=== PATIENT | female | born 1940 | race Caucasian/White ===

== ENCOUNTER → 2016-10-06 | Outpatient (CLI) | payer MEDICARE ==
--- NOTE | 2016-10-06 11:55 | MM ---
Reason for exam: follow-up at short interval from prior study. Last mammogram was performed 9 months ago. History: Patient is postmenopausal and has history of breast cancer at age 74. Mastectomy of the left breast, 2015. Stereotactic core biopsy of the right breast, April 14, 2002. Excisional biopsy of the right breast. Took estrogen for 24 years beginning at age 36. Physical Findings: Nurse did not find any significant physical abnormalities on exam. MG 3D Diag Mammo W/Cad RT CC and MLO view(s) were taken of the right breast. Prior study comparison: December 26, 2015, right breast MG 3d diag mammo w/cad RT. December 22, 2014, bilateral MG work up mamm w CAD BILAT. There are scattered fibroglandular densities. There is chronic nodularity in the right breast. No significant new findings when compared with previous films. These results were verbally communicated with the patient and result sheet given to the patient on 10/06/16. ASSESSMENT: Benign, BI-RAD 2 RECOMMENDATION: Follow-up diagnostic mammogram of the right breast in 6 months.
--- NOTE | 2016-10-06 11:57 | USB ---
Reason for exam: follow-up at short interval from prior study. History: Patient is postmenopausal and has history of breast cancer at age 74. Mastectomy of the left breast, 2015. Stereotactic core biopsy of the right breast, April 14, 2002. Excisional biopsy of the right breast. Took estrogen for 24 years beginning at age 36. US Breast RT Right breast ultrasound including all four quadrants, the retroareolar region and axilla demonstrates a 0.5 x 0.3 x 0.4cm oval, cystic lesion at 10 o'clock and a 0.5 x 0.2 x 0.4cm oval, cystic lesion at 9 o'clock. These results were verbally communicated with the patient and result sheet given to the patient on 10/06/16. ASSESSMENT: Benign, BI-RAD 2 RECOMMENDATION: Follow-up diagnostic mammogram of the right breast in 6 months.
== END | disposition home or self-care (01) ==
LOC: RADMAMWWP 07:16
PROVIDERS: ATTEND Family Medicine
DX: Z08 Encounter for follow-up examination after completed treatment for malignant neoplasm (principal); Z85.3 Personal history of malignant neoplasm of breast
CPT/HCPCS: 76641; G0206; G0279

== ENCOUNTER → 2017-04-07 | Outpatient (CLI) | payer MEDICARE ==
--- NOTE | 2017-04-08 08:09 | MM ---
Reason for exam: follow-up at short interval from prior study. Last mammogram was performed 6 months ago. History: Patient is postmenopausal and has history of breast cancer at age 74. Mastectomy of the left breast, 2015. Stereotactic core biopsy of the right breast, April 14, 2002. Excisional biopsy of the right breast. Took estrogen for 24 years beginning at age 36. Physical Findings: Nurse did not find any significant physical abnormalities on exam. MG 3D Diag Mammo W/Cad RT CC and MLO view(s) were taken of the right breast. Prior study comparison: October 06, 2016, right breast MG 3d diag mammo w/cad RT. December 26, 2015, right breast MG 3d diag mammo w/cad RT. There are scattered fibroglandular densities. Finding: There is a 6.9mm high density mass located 8.5cm from the nipple in the 3-4 o'clock position of the right breast. New finding since October 06, 2016 and December 26, 2015. These results were verbally communicated with the patient and result sheet given to the patient on 04/07/17. ASSESSMENT: Incomplete: need additional imaging evaluation, BI-RAD 0 RECOMMENDATION: Ultrasound of the right breast. (Lower inner quadrant).
--- NOTE | 2017-04-08 08:12 | USB ---
Reason for exam: additional evaluation requested from abnormal screening. History: Patient is postmenopausal and has history of breast cancer at age 74. Mastectomy of the left breast, 2015. Stereotactic core biopsy of the right breast, April 14, 2002. Excisional biopsy of the right breast. Took estrogen for 24 years beginning at age 36. US Breast Limited RT Right breast ultrasound demonstrates no cystic or solid lesion seen. These results were verbally communicated with the patient and result sheet given to the patient on 04/07/17. ASSESSMENT: Negative, BI-RAD 1 RECOMMENDATION: Follow-up diagnostic mammogram of the right breast in 6 months.
== END | disposition home or self-care (01) ==
LOC: RADMAMWWP 13:28
PROVIDERS: ATTEND Family Medicine
DX: R92.8 Other abnormal and inconclusive findings on diagnostic imaging of breast (principal); Z85.3 Personal history of malignant neoplasm of breast
CPT/HCPCS: 76642; G0206; G0279

== ENCOUNTER → 2017-10-08 | Outpatient (CLI) | payer MEDICARE ==
--- NOTE | 2017-10-08 10:31 | MM ---
Reason for exam: follow-up at short interval from prior study. Last mammogram was performed 6 months ago. History: Patient is postmenopausal and has history of breast cancer at age 74. Mastectomy of the left breast, 2015. Stereotactic core biopsy of the right breast, April 14, 2002. Excisional biopsy of the right breast. Took estrogen for 24 years beginning at age 36. Physical Findings: Nurse did not find any significant physical abnormalities on exam. MG 3D Diag Mammo W/Cad RT CC, MLO, and ML view(s) were taken of the right breast. Prior study comparison: April 07, 2017, right breast MG 3d diag mammo w/cad RT. October 06, 2016, right breast MG 3d diag mammo w/cad RT. The breast tissue is heterogeneously dense. This may lower the sensitivity of mammography. Finding: There are typically benign vascular, dystrophic, round calcifications in the right breast. There is a chronic nodularity in the right breast. There is no discrete abnormality. These results were verbally communicated with the patient and result sheet given to the patient on 10/08/17. ASSESSMENT: Benign, BI-RAD 2 RECOMMENDATION: Follow-up diagnostic mammogram of the right breast in 1 year.
== END | disposition home or self-care (01) ==
LOC: RADMAMWWP 09:31
PROVIDERS: ATTEND Family Medicine
DX: Z09 Encounter for follow-up examination after completed treatment for conditions other than malignant neoplasm (principal); Z85.3 Personal history of malignant neoplasm of breast
CPT/HCPCS: 77065; G0279

== ENCOUNTER → 2018-01-20 | Outpatient (CLI) | payer MEDICARE ==
--- NOTE | 2018-01-20 13:16 | BD ---
EXAMINATION TYPE: Axial Bone Density DATE OF EXAM: 01/20/2018 COMPARISON: 12/26/2015 CLINICAL HISTORY: Osteoporosis screening. Postmenopausal female. Height: 66.5 IN Weight: 195 LBS FRAX RISK QUESTIONS: Secondary Osteoporosis: 3. Menopause before 45: YES AGE 34 RISK FACTORS HISTORY OF: Family History of Osteoporosis: SON/ DAUGHTER Active: MODERATE Postmenopausal woman: AGE 34 MEDICATIONS: Thyroid Medications: YES Which medication: Synthroid How Lon + YEARS Additional Medications: VIT D, SYNTHROID, BLOOD PRESSURE MEDS, CHOLESTEROL MEDS Additional History: BREAST CANCER EXAM MEASUREMENTS: Bone mineral densitometry was performed using the [employer] System. Bone mineral density as measured about the Lumbar spine is: ----- L1-L4(G/cm2): 1.191 T Score Values are as follows: ----- L2: -0.6 ----- L3: 0.5 ----- L4: 1.0 ----- L1-L4: 0.1 Bone mineral density has: Increased 2.5% since study of: 12/26/2015 Bone mineral density about the R hip (g/cm2): 0.972 Bone mineral density about the L hip (g/cm2): 0.910 T Score values are as follows: -----R Neck: -0.5 -----L Neck: -0.9 -----R Total: -0.1 -----L Total: -0.2 Bone mineral density has: Decreased -3.0% since study of: 12/26/2015 IMPRESSION: Normal (Values between +1 and -1 indicate normal bone mass). Values approach osteopenia and requires of the left femur. Consider repeating this study in 5 years or sooner if there is some new clinical i ndication. NOTE: T-SCORE=SD OF THE YOUNG ADULT MEAN.
== END | disposition home or self-care (01) ==
LOC: RADBDWWP 07:53
PROVIDERS: ATTEND Family Medicine
DX: M85.852 Other specified disorders of bone density and structure, left thigh (principal); Z78.0 Asymptomatic menopausal state
CPT/HCPCS: 77080

== ENCOUNTER → 2018-11-30 | Outpatient (CLI) | payer MEDICARE ==
--- NOTE | 2018-11-30 13:11 | ECHOF ---
Referral Reason:R06.02 SOB MEASUREMENTS -------- HEIGHT: 170.2 cm WEIGHT: 86.2 kg BP: 139/66 RVIDd: 3.0 cm (< 3.3) IVSd: 1.1 cm (0.6 - 1.1) LVIDd: 3.7 cm (3.9 - 5.3) LVPWd: 1.1 cm (0.6 - 1.1) IVSs: 1.6 cm LVIDs: 2.4 cm LVPWs: 1.5 cm LA Diam: 2.9 cm (2.7 - 3.8) LAESV Index (A-L): 11.16 ml/m Ao Diam: 3.1 cm (2.0 - 3.7) AV Cusp: 2.0 cm (1.5 - 2.6) MV EXCURSION: 13.536 mm (> 18.000) MV EF SLOPE: 47 mm/s (70 - 150) EPSS: 0.7 cm MV E Mohsen: 0.63 m/s MV DecT: 293 ms MV A Mohsen: 0.94 m/s MV E/A Ratio: 0.67 RAP: 5.00 mmHg RVSP: 25.63 mmHg FINDINGS -------- Sinus rhythm. This was a technically adequate study. The left ventricular size is normal. There is borderline concentric left ventricular hypertrophy. Overall left ventricular systolic function is normal with, an EF between 60 - 65 %. The right ventricle is normal in size. Normal LA size by volume 22+/-6 ml/m2. The right atrium is normal in size. There is mild aortic valve sclerosis. The mitral valve leaflets are mildly thickened. Mild mitral annular calcification present. Mild tricuspid regurgitation present. Right ventricular systolic pressure is normal at < 35 mmHg. Trace/mild (physiologic) pulmonic regurgitation. The aortic root size is normal. Normal inferior vena cava with normal inspiratory collapse consistent with estimated right atrial pre ssure of 5 mmHg. There is no pericardial effusion. CONCLUSIONS -------- 1. Sinus rhythm. 2. This was a technically adequate study. 3. The left ventricular size is normal. 4. There is borderline concentric left ventricular hypertrophy. 5. Overall left ventricular systolic function is normal with, an EF between 60 - 65 %. 6. The right ventricle is normal in size. 7. Normal LA size by volume 22+/-6 ml/m2. 8. The right atrium is normal in size. 9. There is mild aortic valve sclerosis. 10. The mitral valve leaflets are mildly thickened. 11. Mild mitral annular calcification present. 12. Mild tricuspid regurgitation present. 13. Right ventricular systolic pressure is normal at < 35 mmHg. 14. Trace/mild (physiologic) pulmonic regurgitation. 15. The aortic root size is normal. 16. Normal inferior vena cava with normal inspiratory collapse consistent with estimated right atrial pressure of 5 mmHg. 17. There is no pericardial effusion. STUDENT SERVICES ADVISOR: Evelin Hugo RDCS
--- NOTE | 2018-11-30 13:14 | XR ---
EXAMINATION TYPE: XR lumbar spine 2 or 3V DATE OF EXAM: 11/30/2018 COMPARISON: NONE HISTORY: 78-year-old female low back pain and sciatica for 2 months TECHNIQUE: 3 views FINDINGS: 5 lumbar type vertebral bodies. Facet arthropathy mid to lower lumbar spine. Grade 1 anterolisthesis at L4-L5. Mild endplate spondylosis throughout. Vertebral body heights are preserved. Atherosclerotic calcifications throughout the abdominal aorta. 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 At le ast mild multilevel degenerative disc disease. No vertebral compression collapse.
--- NOTE | 2018-11-30 13:16 | MM ---
Reason for exam: additional evaluation requested from prior study. Last mammogram was performed 1 year and 2 months ago. History: Patient is postmenopausal and has history of breast cancer at age 74. Mastectomy of the left breast, 2015. Stereotactic core biopsy of the right breast, April 14, 2002. Excisional biopsy of the right breast. Took estrogen for 24 years beginning at age 36. Physical Findings: Nurse did not find any significant physical abnormalities on exam. MG 3D Diag Mammo W/Cad RT CC and MLO view(s) were taken of the right breast. Prior study comparison: October 08, 2017, right breast MG 3d diag mammo w/cad RT. April 07, 2017, right breast MG 3d diag mammo w/cad RT. The breast tissue is heterogeneously dense. This may lower the sensitivity of mammography. Stable benign calcifications. There is chronic nodularity in the right breast. No significant new findings when compared with previous films. These results were verbally communicated with the patient and result sheet given to the patient on 11/30/18. ASSESSMENT: Benign, BI-RAD 2 RECOMMENDATION: Follow-up diagnostic mammogram of the right breast in 1 year.
== END | disposition home or self-care (01) ==
LOC: RADECHMAIN 10:41
PROVIDERS: ATTEND Family Medicine
DX: Z08 Encounter for follow-up examination after completed treatment for malignant neoplasm (principal); M51.16 Intervertebral disc disorders with radiculopathy, lumbar region; M46.86 Other specified inflammatory spondylopathies, lumbar region; M43.16 Spondylolisthesis, lumbar region; I07.1 Rheumatic tricuspid insufficiency; I35.8 Other nonrheumatic aortic valve disorders; I05.8 Other rheumatic mitral valve diseases; I37.1 Nonrheumatic pulmonary valve insufficiency; Z85.3 Personal history of malignant neoplasm of breast
CPT/HCPCS: 93306; 72100; 77065; G0279; 77061

== ENCOUNTER → 2020-03-14 | Outpatient (CLI) | payer MEDICARE ==
--- NOTE | 2020-03-20 11:22 | MM ---
Reason for exam: additional evaluation requested from prior study. Last mammogram was performed 1 year and 3 months ago. History: Patient is postmenopausal and has history of breast cancer at age 74. Mastectomy of the left breast, 2015. Stereotactic core biopsy of the right breast, April 14, 2002. Excisional biopsy of the right breast. Took estrogen for 24 years beginning at age 36. Physical Findings: Nurse did not find any significant physical abnormalities on exam. MG 3D Diag Mammo W/Cad RT CC and MLO view(s) were taken of the right breast. Prior study comparison: November 30, 2018, right breast MG 3d diag mammo w/cad RT. October 08, 2017, right breast MG 3d diag mammo w/cad RT. There is chronic nodularity in the right breast. No significant new findings when compared with previous films. These results were verbally communicated with the patient and result sheet given to the patient on 03/14/20. ASSESSMENT: Benign, BI-RAD 2 RECOMMENDATION: Routine screening mammogram of the right breast in 1 year.
== END | disposition home or self-care (01) ==
LOC: RADMAMWWP 09:47
PROVIDERS: ATTEND Family Medicine
DX: Z08 Encounter for follow-up examination after completed treatment for malignant neoplasm (principal); Z85.3 Personal history of malignant neoplasm of breast
CPT/HCPCS: 77065; G0279; 77061

== ENCOUNTER → 2021-06-04 | Outpatient (CLI) | payer MEDICARE ==
[2021-06-04 14:49] LABS: Basophils # (A) 0.02 X 10*3/uL (0.00-0.10); Basophils % (A) 0.3 %; Eosinophils # (A) 0.09 X 10*3/uL (0.04-0.35); Eosinophils % (A) 1.4 %; HCT 45.4 % (37.2-46.3); HGB 14.3 g/dL (12.0-15.0); Lymphocytes # (A) 1.71 X 10*3/uL (0.90-5.00); Lymphocytes % (A) 25.8 %; MCH 31.2 pg (27.0-32.0); MCHC 31.5 g/dL (32.0-37.0); MCV 98.9 fL (80.0-97.0); Mean Platelet Volume 11.4 fL (9.5-12.2); Monocytes # (A) 0.61 X 10*3/uL (0.20-1.00); Monocytes % (A) 9.2 %; Neutrophils # (A) 4.18 X 10*3/uL (1.80-7.70); Platelet Count 216 X 10*3/uL (140-440); RBC 4.59 X 10*6/uL (4.10-5.20); RDW 12.9 % (11.5-14.5); WBC 6.63 X 10*3/uL (4.50-10.00)
[2021-06-04 16:11] LABS: African American GFR (CKD) 61.6 (60.0-200.0); Albumin 4.6 g/dL (3.8-4.9); Albumin/Globulin Ratio 1.92 (1.60-3.17); Anion Gap 12.4 mmol/L (4.00-12.00); BUN/Creat Ratio 15.4 Ratio (12.00-20.00); Blood Urea Nitrogen 15.4 mg/dL (9.0-27.0); Calcium 9.9 mg/dL (8.7-10.3); Carbon Dioxide 27.6 mmol/L (21.6-31.8); Chol/HDL Ratio 3.57 Ratio; Globulin 2.4 g/dL (1.6-3.3); HDL Cholesterol 51.3 mg/dL (40.00-60.00); LDL Cholesterol,Calculated 90.5 mg/dL (0.0-131.0); Non-African American GFR(CKD) 53.2 (60.0-200.0); Potassium 4.2 mmol/L (3.5-5.5); Total Bilirubin 0.4 mg/dL (0.30-1.20); Uric Acid 5.2 mg/dL (2.9-7.7); VLDL Calculation 41.2 mg/dL (5.00-40.00)
== END | disposition home or self-care (01) ==
LOC: LABWHC1 09:20
PROVIDERS: ATTEND Family Medicine
DX: I12.9 Hypertensive chronic kidney disease with stage 1 through stage 4 chronic kidney disease, or unspecified chronic kidney disease (principal); J44.9 Chronic obstructive pulmonary disease, unspecified; E78.5 Hyperlipidemia, unspecified; N18.31 Chronic kidney disease, stage 3a; R73.03 Prediabetes; M54.50 Low back pain, unspecified
CPT/HCPCS: 36415; 80053; 80061; 82306; 82550; 83036; 84207; 84443; 84550; 85025

== ENCOUNTER → 2021-09-19 | Outpatient (CLI) | payer MEDICARE ==
--- NOTE | 2021-09-19 12:00 | MM ---
Reason for exam: additional evaluation requested from prior study. Last mammogram was performed 1 year and 6 months ago. History: Patient is postmenopausal and has history of breast cancer at age 74. Mastectomy of the left breast, 2015. Stereotactic core biopsy of the right breast, April 14, 2002. Excisional biopsy of the right breast. Took estrogen for 24 years beginning at age 36. Physical Findings: Nurse did not find any significant physical abnormalities on exam. MG 3D Diag Mammo W/Cad RT CC and MLO view(s) were taken of the right breast. Prior study comparison: March 14, 2020, right breast MG 3d diag mammo w/cad RT. November 30, 2018, right breast MG 3d diag mammo w/cad RT. There are scattered fibroglandular densities. There is chronic nodularity in the right breast. Benign vascular calcifications. No significant new findings when compared with previous films. These results were verbally communicated with the patient and result sheet given to the patient on 09/19/21. ASSESSMENT: Benign, BI-RAD 2 RECOMMENDATION: Follow-up diagnostic mammogram of the right breast in 1 year.
--- NOTE | 2021-09-19 17:12 | BD ---
EXAMINATION TYPE: Axial Bone Density DATE OF EXAM: 09/19/2021 COMPARISON: 01.20.2018 CLINICAL HISTORY: 81 YR OLD FEMALE....ICD-10 CODE: Z78.0 MENOPAUSE, M81.0 OSTEOPOROSIS Height: 66 Weight: 195 FRAX RISK QUESTIONS: Secondary Osteoporosis: YES 3. Menopause before 45: YES RISK FACTORS HISTORY OF: Postmenopausal woman: YES, 35 PARTIAL, DANN AT 43, HRT FOR 10 YRS Frequent falls: UNSTEADY, USING [employer] Hyperparathyroidism: NO Adrenal Insufficiency: NO MEDICATIONS: Thyroid Medications: YES, SYNTHROID, FOR 10 YRS Additional Medications: BP MEDS, VIT D AND CALCIUM Additional History: HYPERTENSION, THYROID, OSTEOARTHRITIS, HX OF LT BREAST CANCER, MASTECTOMY, ANTI-H ORMONE TREATMENT ONLY EXAM MEASUREMENTS: Bone mineral densitometry was performed using the [employer] System. Bone mineral density as measured about the Lumbar spine is: ----- L1-L4(G/cm2): 1.152 T Score Values are as follows: ----- L1: -0.6 ----- L2: -0.4 ----- L3: 0.3 ----- L4: -0.4 ----- L1-L4: -0.2 Bone mineral density has: Decreased -5.7% SINCE : 01.20.2018 Bone mineral density about the R hip (g/cm2): 0.968 Bone mineral density about the L hip (g/cm2): 0.987 T Score values are as follows: -----R Neck: -0.6 -----L Neck: -0.8 -----R Total: -0.3 -----L Total: -0.2 Bone mineral density has: Decreased -1.0% SINCE: 01.20.2018 FRAX%S: THERE IS A 10.4% CHANCE FOR A MAJOR OSTEOPOROTIC FX AND A 1.9% FOR HER HIPS......PROBABIL ITY FOR FX IN 10 YRS TIME IMPRESSION: Normal (Values between +1 and -1 indicate normal bone mass). Consider repeating this study in 5 year s or sooner if there is some new clinical indication. NOTE: T-SCORE=SD OF THE YOUNG ADULT MEAN.
== END | disposition home or self-care (01) ==
LOC: RADMAMWWP 10:28
PROVIDERS: ATTEND Family Medicine
DX: R92.8 Other abnormal and inconclusive findings on diagnostic imaging of breast (principal); Z78.0 Asymptomatic menopausal state; Z85.3 Personal history of malignant neoplasm of breast
CPT/HCPCS: 77080; 77065; G0279; 77061

== ENCOUNTER 2023-03-31 20:10 | Observation (INO) | payer MEDICARE ==
[2023-03-31 20:54] LABS: Basophils % (A) 0 %; Eosinophils # (A) 0.1 k/uL (0-0.7); Eosinophils % (A) 1 %; HCT 41.2 % (34.0-46.0); HGB 13.8 gm/dL (11.4-16.0); Lymphocytes # (A) 2.1 k/uL (1.0-4.8); Lymphocytes % (A) 27 %; MCH 32.4 pg (25.0-35.0); MCHC 33.5 g/dL (31.0-37.0); MCV 96.6 fL (80.0-100.0); Mean Platelet Volume 8.6; Monocytes # (A) 0.7 k/uL (0-1.0); Monocytes % (A) 9 %; Neutrophils # (A) 4.6 k/uL (1.3-7.7); Neutrophils % (A) 59 %; Platelet Count 198 k/uL (150-450); RBC 4.26 m/uL (3.80-5.40); RDW 12.5 % (11.5-15.5); WBC 7.7 k/uL (3.8-10.6)
[2023-03-31 20:58] LABS: ALT 22 U/L (4-34); AST 31 U/L (14-36); African American GFR (CKD) 60 (>60 ml/min/1.73 sqM); Albumin 3.9 g/dL (3.5-5.0); Alkaline Phosphatase 103 U/L (38-126); Anion Gap 8 mmol/L; Blood Urea Nitrogen 21 mg/dL (7-17); Carbon Dioxide 27 mmol/L (22-30); Chloride 105 mmol/L (98-107); Glucose 125 mg/dL (74-99); Lipase 207 U/L (23-300); Magnesium 2.2 mg/dL (1.6-2.3); Non-African American GFR(CKD) 52 (>60 ml/min/1.73 sqM); Potassium 3.4 mmol/L (3.5-5.1); Sodium 140 mmol/L (137-145); Total Bilirubin 0.4 mg/dL (0.2-1.3); Total Protein 6.8 g/dL (6.3-8.2)
[2023-03-31 21:07] LABS: NT-Pro-B-Type Natriuretic Pept 273 pg/mL
--- NOTE | 2023-03-31 21:09 | ED ---
Chest Pain HPI - General Chief Complaint: Chest Pain Stated Complaint: Chest Pain Time Seen by Provider: 03/31/23 20:42 Source: patient Mode of arrival: EMS Limitations: no limitations - History of Present Illness Initial Comments: 82-year-old female with past medical history of breast cancer in remission, hypertension, hyperlipidemia who presents to the emergency room reporting left- sided chest pain. States the pain has been going on for the past 2 days. Is located over the left chest wall and is described as a pressure sensation which radiates to her back and into her left arm. She does have some left arm numbness. Pain was significant, 10 out of 10 when she called EMS. They provided her with 324 mg of chewable aspirin and 3 nitros. Arrives and states that her pain is mostly improved. She grades her pain is 2 out of 10. Denies history of coronary disease. No associated fevers, chills or cough. No calf pain or swelling. No history of DVT or PE. Denies any provocative factors. No numbness or tingling in her lower extremities. No other alleviating, precipitating or modifying factors - Related Data Home Medications Medication Instructions Recorded Confirmed Omeprazole [PriLOSEC] 20 mg PO DAILY 10/15/14 03/31/23 Pravastatin Sodium [Pravachol] 40 mg PO HS 10/15/14 03/31/23 Losartan Potassium 100 mg PO DAILY 01/11/15 03/31/23 hydroCHLOROthiazide 12.5 mg PO DAILY 01/11/15 03/31/23 [Hydrochlorothiazide] Levothyroxine Sodium [Synthroid] 75 mcg PO DAILY 03/31/23 03/31/23 Vit C/E/Zn/Coppr/Lutein/Zeaxan 1 cap PO BID 03/31/23 03/31/23 [Preservision Areds 2 Softgel] diphenhydrAMINE [Benadryl] 25 mg PO DAILY PRN 03/31/23 03/31/23 Allergies Allergy/AdvReac Type Severity Reaction Status Date / Time codeine AdvReac Confusion Verified 03/31/23 22:28 morphine AdvReac Confusion Verified 03/31/23 22:28 Review of Systems ROS Statement: Those systems with pertinent positive or pertinent negative responses have been documented in the HPI. ROS Other: All systems not noted in ROS Statement are negative. Past Medical History Past Medical History: Cancer, GERD/Reflux, Hyperlipidemia, Hypertension, Thyroid Disorder Additional Past Medical History / Comment(s): LEFT BREAST CANCER. History of Any Multi-Drug Resistant Organisms: None Reported Past Surgical History: Heart Catheterization Additional Past Surgical History / Comment(s): PARTIAL THYROIDECTOMY - 2000, cataract, lens implants. HEART CATH IN OCTOBER 2014- NEGATIVE Past Anesthesia/Blood Transfusion Reactions: No Reported Reaction Past Psychological History: Anxiety Past Alcohol Use History: None Reported Past Drug Use History: None Reported - Past Family History Father Brother(s) Family Medical History: Cancer Father Family Medical History: Cancer Mother Family Medical History: Myocardial Infarction ([place]) General Exam Limitations: no limitations General appearance: alert, in no apparent distress Head exam: Present: atraumatic, normocephalic, normal inspection Eye exam: Present: normal appearance, PERRL, EOMI. Absent: scleral icterus, conjunctival injection, periorbital swelling ENT exam: Present: normal exam, mucous membranes moist Neck exam: Present: normal inspection. Absent: tenderness, meningismus, lymphadenopathy Respiratory exam: Present: normal lung sounds bilaterally. Absent: respiratory distress, wheezes, rales, rhonchi, stridor Cardiovascular Exam: Present: regular rate, normal rhythm, normal heart sounds. Absent: systolic murmur, diastolic murmur, rubs, gallop, clicks GI/Abdominal exam: Present: soft, normal bowel sounds. Absent: distended, tenderness, guarding, rebound, rigid Extremities exam: Present: normal inspection, full ROM, normal capillary refill. Absent: tenderness, pedal edema, joint swelling, calf tenderness Back exam: Present: normal inspection Neurological exam: Present: alert, oriented X3, CN II-XII intact Psychiatric exam: Present: normal affect, normal mood Skin exam: Present: warm, dry, intact, normal color. Absent: rash Course Vital Signs 03/31/23 20:13 Temperature 97.9 F Pulse Rate 92 Respiratory 20 Rate Blood Pressure 137/95 O2 Sat by Pulse 94 L Oximetry Chest Pain MDM - MDM Was pt. sent in by a medical professional or institution (, PA, FIREBOAT OPERATOR, urgent care, hospital, or shelter...) When possible be specific @ -No Did you speak to anyone other than the patient for history (EMS, parent, family, police, friend...)? What history was obtained from this source @ -Spoke with EMS about the patient's history Did you review nursing and triage notes (agree or disagree)? Why? @ -I reviewed and agree with nursing and triage notes Were old charts reviewed (outside hosp., previous admission, EMS record, old EKG, old radiological studies, urgent care reports/EKG's, shelter records)? Report findings @ -No old charts were reviewed Differential Diagnosis (chest pain, altered mental status, abdominal pain women, abdominal pain men, vaginal bleeding, weakness, fever, dyspnea, syncope, headache, dizziness, GI bleed, back pain, seizure, CVA, palpatations, mental health, musculoskeletal)? @ -Differential Chest Pain: Stable Angina, Unstable Angina, STEMI, NSTEMI Aortic Dissection, Pneumothorax, M usculoskeletal, Esophageal Spasm GERD, Cholecystitis, Pancreatitis, Zoster, this is not meant to be an all-inclusive list. EKG interpreted by me (3pts min.). @ -Yes and demonstrates sinus rhythm with a rate of 93. OH interval 131. QRS 94. QTC of 408. Some PVCs. No acute ST segment elevation X-rays interpreted by me (1pt min.). @ -Yes and demonstrates no acute intrathoracic process CT interpreted by me (1pt min.). @ -None done U/S interpreted by me (1pt. min.). @ -None done What testing was considered but not performed or refused? (CT, X-rays, U/S, labs)? Why? @ -None What meds were considered but not given or refused? Why? @ -None Did you discuss the management of the patient with other professionals (professionals i.e. , PA, FIREBOAT OPERATOR, lab, RT, psych nurse, manager social responsibility, pantry worker, teacher, patient safety officer, manager of case management)? Give summary @ -With Armida from [facility] who agreed to admit the patient Was smoking cessation discussed for >3mins.? @ -No Was critical care preformed (if so, how long)? @ -No Were there social determinants of health that impacted care today? How? (Homelessness, low income, unemployed, alcoholism, drug addiction, transportation, low edu. Level, literacy, decrease access to med. care, custodial, rehab)? @ -No Was there de-escalation of care discussed even if they declined (Discuss DNR or withdrawal of care, Hospice)? DNR status @ -No What co-morbidities impacted this encounter? (DM, HTN, Smoking, COPD, CAD, Cancer, CVA, ARF, Chemo, Hep., AIDS, mental health diagnosis, sleep apnea, morbid obesity)? @ -None Was patient admitted / discharged? Hospital course, mention meds given and route, prescriptions, significant lab abnormalities, going to OR and other pertinent info. @ -Upon arrival patient was placed in room 1. A thorough history and physical exam was performed. Patient is hooked to continuous pulse ox and cardiac monitoring. 12-lead EKG is obtained which demonstrates no signs of ischemia or infarction. IV is established laboratory studies are conducted. Patient has already received 3 nitro and 4 chewable aspirin. Laboratory studies are reviewed. Patient does go for chest x-ray. Results are discussed the patient. Recommended admission due to chest pain responsive to nitro with multiple risk factors for coronary disease. Patient was agreeable to admission. Called and spoke with Armida who agreed to admit the patient. She is awaiting a bed on the floor in stable condition Undiagnosed new problem with uncertain prognosis? @ -Yes Drug Therapy requiring intensive monitoring for toxicity (Heparin, Nitro, Insulin, Cardizem)? @ -No Were any procedures done? @ -No Diagnosis/symptom? @ -Acute chest pain Acute, or Chronic, or Acute on Chronic? @ -Acute Uncomplicated (without systemic symptoms) or Complicated (systemic symptoms)? @ -Complicated Side effects of treatment? @ -No Exacerbation, Progression, or Severe Exacerbation? @ -No Poses a threat to life or bodily function? How? (Chest pain, [place], [place], pneumonia, PE, COPD, DKA, ARF, appy, cholecystitis, CVA, Diverticulitis, Homicidal, Suicidal, threat to staff... and all critical care pts) @ -Yes chest pain may represent acute coronary event Disposition Clinical Impression: Chest pain Disposition: ADMITTED IP TO THIS [facility] Condition: Stable Is patient prescribed a controlled substance at d/c from ED?: No Time of Disposition: 21:58 Decision to Admit Reason: Admit from EC Decision Date: 03/31/23 Decision Time: 21:58
[2023-03-31 21:13] LABS: INR 0.9 (<1.2); Partial Thromboplastin Time 21.1 sec (22.0-30.0); Prothrombin Time 9.9 sec (9.0-12.0)
--- NOTE | 2023-03-31 21:22 | XR ---
EXAMINATION TYPE: XR chest 2V DATE OF EXAM: 03/31/2023 COMPARISON: 05/27/16 HISTORY: Shortness of breath TECHNIQUE: Frontal and lateral views of the chest are obtained. FINDINGS: Scattered senescent parenchymal changes noted. Hyperinflation compatible with COPD. No evidence for infiltrate. No evidence for atelectasis. Heart size is stable. Mediastinal structures are stable and grossly unremarkable. No evidence for hilar prominence. Degenerative changes dorsal spine. IMPRESSION: 1. No evidence for acute pulmonary disease.
[2023-03-31] MEDS ORDERED: NALOXONE 0.4 MG/ML 1 ML VIAL IV PRN (22:05)
[2023-04-01 03:26] VITALS: RESP 16
[2023-04-01 04:12] LABS: Basophils % (A) 0 %; Eosinophils # (A) 0.1 k/uL (0-0.7); Eosinophils % (A) 1 %; HGB 13.9 gm/dL (11.4-16.0); Lymphocytes # (A) 1.7 k/uL (1.0-4.8); Lymphocytes % (A) 21 %; MCH 32.2 pg (25.0-35.0); MCV 97.7 fL (80.0-100.0); Mean Platelet Volume 8.4; Monocytes # (A) 0.7 k/uL (0-1.0); Monocytes % (A) 8 %; Neutrophils # (A) 5.6 k/uL (1.3-7.7); Neutrophils % (A) 67 %; Platelet Count 168 k/uL (150-450); RDW 12.5 % (11.5-15.5); WBC 8.3 k/uL (3.8-10.6)
[2023-04-01 04:17] LABS: African American GFR (CKD) 69 (>60 ml/min/1.73 sqM); Anion Gap 6 mmol/L; Blood Urea Nitrogen 20 mg/dL (7-17); Calcium 9.1 mg/dL (8.4-10.2); Carbon Dioxide 29 mmol/L (22-30); Chloride 104 mmol/L (98-107); Glucose 98 mg/dL (74-99); Non-African American GFR(CKD) 60 (>60 ml/min/1.73 sqM); Potassium 3.8 mmol/L (3.5-5.1); Sodium 139 mmol/L (137-145)
[2023-04-01 07:51] VITALS: BP 149/85; PULSE 96; TEMP 97.8
[2023-04-01] MEDS ORDERED: hydroCHLOROthiazide 12.5 MG CAP PO SCH (09:00)
[2023-04-01] MEDS ORDERED: PANTOPRAZOLE 40 MG TABLET PO SCH (09:00)
[2023-04-01] MEDS ORDERED: VIT A,C & E-LUTEIN-MINERALS 1 EACH TAB PO SCH (09:00)
[2023-04-01] MEDS ORDERED: LOSARTAN 50 MG TAB PO SCH (09:00)
[2023-04-01] MEDS ORDERED: LEVOTHYROXINE 75 MCG TAB PO SCH (09:00)
--- NOTE | 2023-04-01 10:00 | P.CRDCN ---
History of Present Illness Consult date: 04/01/23 Consult reason: chest pain (acute, possible ACS) History of present illness: History of present illness: This is an 82 year old female previously seen by Dr. Galo 2016 with past medical history of hypertension, hyper cholesterolemia, episodes of postural hypotension. We have been asked to evaluate the patient for acute chest pain, possible acute coronary syndrome. Patient gives history of having pain on the left side of her chest that shoots around to the side and to the back that has been going on for a number of hours. The day before she was pushing her dresser. Today she is also having some numbness in her fingers. She does not think it is any better at this point. She has had no fever or chills, no cough. No vomiting. EKG sinus rhythm with no acute changes Chest x-ray:no acute process CBC unremarkable. Electrolytes normal. BUN 20 creatinine 0.9. Troponin negative 3. ProBNP 273. Home cardiac medications: Hydrochlorothiazide 12.5 mg daily, losartan 100 mg daily, Pravachol 40 mg at bedtime Review Of Systems: At the time of my evaluation: Constitutional: No fever, no chills. No weakness, fatigue or lethargy. EENT: No headache. No dizziness. Lungs: No shortness of breath, cough, no sputum production. No wheezing. Cardiovascular: Reports left chest pain, no lower extremity edema. No palpitations. No paroxysmal nocturnal dyspnea. No orthopnea. No lightheadedness or dizziness. No syncopal episodes. Abdominal: No abdominal pain. No nausea, vomiting. No diarrhea. No constipation. No bloody or tarry stools. Musculoskeletal: No myalgias. No muscle weakness, no frequent falls. Reports left finger numbness Integumentary: No wounds. No rash. Neurologic: No aphasia. No facial droop. No change in mentation. No head injury. No headache. Physical examination: Gen: This is an 82-year-old female resting in bed and appears to be comfortable and in no acute distress VS: reviewed HEENT: Head is atraumatic, normocephalic. Pupils equal, round. Sclerae is anicteric. NECK: Supple. No JVD. . LUNGS: Clear to auscultation. No wheezes or rhonchi. No intercostal retractions. HEART: Regular rate and rhythm. No murmur. ABDOMEN: Soft EXTREMITIES: No pedal edema. No calf tenderness. NEUROLOGICAL: Patient is awake, alert and oriented x3. Assessment: Chest pain, musculoskeletal, acute coronary syndrome ruled out Left finger numbness Hypertension Hypercholesterolemia Remote history of tobacco use Plan: Resume patient's home cardiac medications Obtain d-dimer to rule out pulmonary embolism Obtain lipid panel Obtain 2-D echocardiogram and Doppler study to assess cardiac structure and function If echocardiogram is unremarkable, patient is cleared for discharge home. She may follow up in the office with Dr. Marshall in 2 weeks Thank you kindly for this consultation. Nurse practitioner note has been reviewed, I agree with documented findings and plan of care. Patient was seen and examined. Past Medical History Past Medical History: Cancer, GERD/Reflux, Hyperlipidemia, Hypertension, Thyroid Disorder Additional Past Medical History / Comment(s): LEFT BREAST CANCER. History of Any Multi-Drug Resistant Organisms: None Reported Past Surgical History: Heart Catheterization Additional Past Surgical History / Comment(s): PARTIAL THYROIDECTOMY - 2000, cataract, lens implants. HEART CATH IN OCTOBER 2014- NEGATIVE Past Anesthesia/Blood Transfusion Reactions: No Reported Reaction Past Psychological History: Anxiety Smoking Status: Former smoker Past Alcohol Use History: None Reported Past Drug Use History: None Reported - Past Family History Father Brother(s) Family Medical History: Cancer Father Family Medical History: Cancer Mother Family Medical History: Myocardial Infarction ([place]) Medications and Allergies Home Medications Medication Instructions Recorded Confirmed Type Omeprazole [PriLOSEC] 20 mg PO DAILY 10/15/14 03/31/23 History Pravastatin Sodium [Pravachol] 40 mg PO HS 10/15/14 03/31/23 History Losartan Potassium 100 mg PO DAILY 01/11/15 03/31/23 History hydroCHLOROthiazide 12.5 mg PO DAILY 01/11/15 03/31/23 History [Hydrochlorothiazide] Levothyroxine Sodium [Synthroid] 75 mcg PO DAILY 03/31/23 03/31/23 History Vit C/E/Zn/Coppr/Lutein/Zeaxan 1 cap PO BID 03/31/23 03/31/23 History [Preservision Areds 2 Softgel] diphenhydrAMINE [Benadryl] 25 mg PO DAILY PRN 03/31/23 03/31/23 History Allergies Allergy/AdvReac Type Severity Reaction Status Date / Time codeine AdvReac Confusion Verified 03/31/23 22:28 morphine AdvReac Confusion Verified 03/31/23 22:28 Physical Exam Vitals: Vital Signs Temp Pulse Pulse Resp BP BP Pulse Ox 04/01/23 07:45 97.8 F 96 16 149/85 96 04/01/23 03:24 98.3 F 75 16 145/64 97 03/31/23 20:13 97.9 F 92 20 137/95 94 L Intake and Output 03/31/23 04/01/23 04/01/23 22:59 06:59 14:59 Other: Weight 86.183 kg 86.183 kg Results 04/01/23 03:40 04/01/23 03:40 Cardiac Enzymes 03/31/23 03/31/23 04/01/23 Range/Units 20:25 20:45 00:42 AST 31 (14-36) U/L Troponin I <0.012 <0.012 (0.000-0.034) ng/mL 04/01/23 Range/Units 03:40 AST (14-36) U/L Troponin I <0.012 (0.000-0.034) ng/mL Coagulation 03/31/23 Range/Units 20:45 PT 9.9 (9.0-12.0) sec APTT 21.1 L (22.0-30.0) sec CBC 03/31/23 04/01/23 Range/Units 20:25 03:40 WBC 7.7 8.3 (3.8-10.6) k/uL RBC 4.26 4.30 (3.80-5.40) m/uL Hgb 13.8 13.9 (11.4-16.0) gm/dL Hct 41.2 42.0 (34.0-46.0) % Plt Count 198 168 (150-450) k/uL Comprehensive Metabolic Panel 03/31/23 04/01/23 Range/Units 20:45 03:40 Sodium 140 139 (137-145) mmol/L Potassium 3.4 L 3.8 (3.5-5.1) mmol/L Chloride 105 104 (98-107) mmol/L Carbon Dioxide 27 29 (22-30) mmol/L BUN 21 H 20 H (7-17) mg/dL Creatinine 1.01 0.90 (0.52-1.04) mg/dL Glucose 125 H 98 (74-99) mg/dL Calcium 9.0 9.1 (8.4-10.2) mg/dL AST 31 (14-36) U/L ALT 22 (4-34) U/L Alkaline Phosphatase 103 (38-126) U/L Total Protein 6.8 (6.3-8.2) g/dL Albumin 3.9 (3.5-5.0) g/dL Current Medications Generic Name Dose Route Start Last Admin Trade Name Freq PRN Reason Stop Dose Admin Naloxone HCl 0.2 mg 03/31/23 22:05 Naloxone 0.4 Mg/Ml 1 Ml Vial IV Q2M PRN Opioid Reversal Intake and Output 03/31/23 04/01/23 04/01/23 22:59 06:59 14:59 Other: Weight 86.183 kg 86.183 kg Patient Weight 04/02/23 06:59 Weight 86.183 kg 04/01/23 03:40 04/01/23 03:40
--- NOTE | 2023-04-01 11:27 | CA ---
Transthoracic Echo Report Name: Ruby Cedeño Age: 82 Gender: F : 1940 Exam Date: 04/01/2023 09:55 Exam Location: [facility] Ht (in): 67 Wt (lb): 190 Ordering Physician: Lynne Hughes Attending/Referring Phys: [id number], Ellen Job Printer Olivia Howe [facility] Procedure CPT: Indications: LVF Cardiac Hx: Technical Quality: Fair Contrast 1: Total Dose (mL): Contrast 2: Total Dose (mL): MEASUREMENTS (Male / Female) Normal Values 2D ECHO LV Diastolic Diameter PLAX 3.6 cm 4.2 - 5.9 / 3.9 - 5.3 cm LV Systolic Diameter PLAX 2.7 cm IVS Diastolic Thickness 1.2 cm 0.6 - 1.0 / 0.6 - 0.9 cm LVPW Diastolic Thickness 1.3 cm 0.6 - 1.0 / 0.6 - 0.9 cm LV Relative Wall Thickness 0.7 LVOT Diameter 2.0 cm Ascending Aorta Diameter 3.5 cm M-MODE Aortic Root Diameter MM 2.9 cm LA Systolic Diameter MM 2.9 cm LA Ao Ratio MM 1.0 AV Cusp Separation MM 2.1 cm DOPPLER AV Peak Velocity 140.6 cm/s AV Peak Gradient 7.9 mmHg AV Mean Velocity 103.5 cm/s AV Mean Gradient 4.6 mmHg AV Velocity Time Integral 24.3 cm LVOT Peak Velocity 107.2 cm/s LVOT Peak Gradient 4.6 mmHg LVOT Velocity Time Integral 19.5 cm LVOT Stroke Volume 62.0 cm??? LVOT Stroke Volume Index 31.3 ml/m??? LVOT Cardiac Index 2520.3 cm???/min???m??? AV Area Cont Eq vti 2.5 cm??? AV Area Cont Eq pk 2.4 cm??? Mitral E Point Velocity 50.3 cm/s Mitral A Point Velocity 85.3 cm/s Mitral E to A Ratio 0.6 MV Deceleration Time 290.6 ms LV E' Lateral Velocity 6.2 cm/s Mitral E to LV E' Lateral Ratio 8.1 LV E' Septal Velocity 4.5 cm/s Mitral E to LV E' Septal Ratio 11.1 TR Peak Velocity 254.8 cm/s TR Peak Gradient 26.0 mmHg Right Atrial Pressure 8.0 mmHg Pulmonary Artery Systolic Pressu 34.0 mmHg Right Ventricular Systolic Press 34.0 mmHg FINDINGS Left Ventricle Mildly increased septal wall thickness. Mildly increased posterior wall thickness. Small left ventricular cavity. Low normal left ventricular systolic function with no obvious regional wall motion abnormalities. Left ventricular ejection fraction is estimated at 50-55%. Right Ventricle Right ventricle at upper limits of normal. Right Atrium Normal right atrial size. Left Atrium Normal left atrial size. Mitral Valve Structurally normal mitral valve. No mitral regurgitation. Aortic Valve Trileaflet aortic valve. No aortic regurgitation. Tricuspid Valve Structurally normal tricuspid valve. Trace to mild tricuspid regurgitation. Pulmonic Valve Structurally normal pulmonic valve. Trace to mild pulmonic regurgitation. Pericardium Minimal pericardial space. Echo free space anterior to the right ventricle likely represents a fat pad. Aorta Normal size aortic root and proximal ascending aorta. CONCLUSIONS LVH with preserved systolic function Prominent posterior pericardial stripe, possible old pericardial reaction Previewed by: Dr. Darnell Marshall MD (Electronically Signed) Final Date: 01 April 2023 11:26
[2023-04-01] MEDS ORDERED: valACYclovir HCL 1,000 MG TABLET PO SCH (14:15)
--- NOTE | 2023-04-01 14:26 | CT ---
EXAMINATION TYPE: CT angio chest DATE OF EXAM: 04/01/2023 COMPARISON: None HISTORY: Left sided chest pain and elevated d-dimer. CT DLP: 289.6 mGycm CONTRAST: CT chest with contrast and 3D reconstruction with MIP imaging is performed with IV Contrast, patient injected with 100ml mL of Isovue 370. Contrast-enhanced CT of the chest was performed through the course of the pulmonary arteries with diony g and mediastinal window settings submitted. 3D reconstruction with MIP imaging was also performed. PULMONARY ARTERIES: The pulmonary arteries and their major tributaries are patent. I do not see melody dence for sizable filling defect to suggest pulmonary embolic process. LUNGS: The lungs are clear and free of infiltrate. No evidence for atelectasis. No pulmonary nodule or mass is detected. No pleural effusion. MEDIASTINUM: Thoracic aorta is of normal caliber,however, evaluation is limited given timing of the contrast bolus. If there is concern for thoracic aortic pathology consider LIZBETH. Correlate clinicall y . The heart is not enlarged. No evidence for mediastinal mass. No mediastinal lymph nodes greater than 1cm. HILAR STRUCTURES: No evidence for mass. No hilar lymph nodes greater than 1 cm. UPPER ABDOMEN: No significant abnormality is seen. IMPRESSION: 1. No evidence for Pulmonary embolism at this time.
--- NOTE | 2023-04-01 15:49 | P.HPIM ---
History of Present Illness H&P Date: 04/01/23 This is a pleasant 82-year-old female who presented to the emergency department reporting left-sided chest pain. Patient states the pain has been ongoing for the last few days and is in her upper left side of her chest upper shoulder that radiates to her upper back by her shoulder blade. Patient reports she has been moving some heavy things around the house and the pain was not letting up. P sahil takes Tylenol extra strength and this has not been helping. Patient was admitted under observation for chest pain cardiology to evaluate. Patient follows with Dr. Lui in the outpatient setting with a past medical history of breast cancer, GERD, hyperlipidemia, hypertension, hypothyroid with partial thyroidectomy. Chest x-ray showed no evidence of acute pulmonary process, EKG showed sinus rhythm with occasional premature complexes and labs reviewed and within normal limits other than a potassium of 3.4. Repeat potassium was 3.8 this morning. Troponins 3 were negative. Cardiology evaluated the patient this morning ordered a 2-D echo and d-dimer. D-dimer was 0.97 mildly elevated and a CTA was ordered to rule out PE. Review Of Systems: Constitutional: No fever, no chills, no night sweats. No weight change. No weakness, fatigue or lethargy. No daytime sleepiness. EENT: No headache. No blurred vision or double vision, no loss of vision. No loss of Hearing, no ringing in the ears, no dizziness. No nasal drainage or congestion. No epistaxis. No sore throat. Lungs: No shortness of breath, cough, no sputum production. No wheezing. Cardiovascular: Reports of chest pain that radiated up her left arm and around her back, no lower extremity edema. No palpitations. No paroxysmal nocturnal dyspnea. No orthopnea. No lightheadedness or dizziness. No syncopal episodes. Abdominal: No abdominal pain. No nausea, vomiting. No diarrhea. No constipation. No bloody or tarry stools.. No loss of appetite. Genitourinary: No dysuria, increased frequency, urgency. No urinary retention. Musculoskeletal: No myalgias. No muscle weakness, no gait dysfunction, no frequ ent falls. No back pain. No neck pain. Integumentary: No wounds, no lesions. No rash or pruritus. No unusual bruising. No change in hair or nails. Neurologic: No aphasia. No facial droop. No change in mentation. No head injury. No headache. No paralysis. No paresthesia. Psychiatric: No depression. No anxiety. No mood swings. Endocrine: No abnormal blood sugars. No weight change. No excessive sweating or thirst. No cold intolerance. PHYSICAL EXAMINATION: GENERAL: The patient is alert and oriented x4, Well developed, well nourished. HEENT: Pupils are round and equally reacting to light. EOMI. no scleral icterus. No conjunctival pallor. Normocephalic, atraumatic. No pharyngeal erythema. No thyromegaly. CARDIOVASCULAR: S1 and S2 muffled PULMONARY: diminished breath sounds bilaterally with no wheezing or rhonchi noted. ABDOMEN: soft. Nontender on exam. obese. non-distended, normoactive bowel sounds. No palpable organomegaly. MUSCULOSKELETAL: No joint swelling or deformity. EXTREMITIES: No cyanosis, clubbing, or pedal edema. NEUROLOGICAL: Gross neurological examination did not reveal any focal deficits. SKIN: There is a patch of redness with vesicular lesions noted but no open drainage of these lesions Assessment: Chest pain, ruled out ACS, musculoskeletal in nature Elevated d-dimer, PE ruled out on CTA Vesicular rash on the upper left shoulder blade, shingles History of breast cancer in remission GERD Hyperlipidemia Hypertension Hypothyroidism with partial thyroidectomy in 2000 History of anxiety GI prophylaxis DVT prophylaxis Full code Plan: Patient was seen and evaluated by her etiology underwent 2-D echo and a d-dimer which was elevated and CTA was done and negative for PE 2-D echo showed LVH with preserved systolic function, prominent posterior pericardial stripe, possible old pericardial reaction and EF was 50-55%. Troponins 3 were negative. After further evaluation and physical assessment patient was found to have a vesicular type rash in a linear pattern with no draining lesions although vesicles noted, likely shingles. Patient will be started on valacyclovir and low-dose Cymbalta and instructed to follow-up with primary care provider. Cymbalta may be increased after a few days. Patient will be discharged today. The impression and plan of care has been dictated by Katie Bourgeois, nurse practitioner as directed. Dr. Christo MD I have performed a history and examination and MDM of this patient, discussed the same with the dictator, and agree with the dictator's assessment and plan as written ,documented as a scribe. Based on total visit time, I have performed more than 50% of the visit. Any additional findings or plans will be noted. Past Medical History Past Medical History: Cancer, GERD/Reflux, Hyperlipidemia, Hypertension, Thyroid Disorder Additional Past Medical History / Comment(s): LEFT BREAST CANCER. History of Any Multi-Drug Resistant Organisms: None Reported Past Surgical History: Heart Catheterization Additional Past Surgical History / Comment(s): PARTIAL THYROIDECTOMY - 2000, cataract, lens implants. HEART CATH IN OCTOBER 2014- NEGATIVE Past Anesthesia/Blood Transfusion Reactions: No Reported Reaction Past Psychological History: Anxiety Smoking Status: Former smoker Past Alcohol Use History: None Reported Past Drug Use History: None Reported - Past Family History Father Brother(s) Family Medical History: Cancer Father Family Medical History: Cancer Mother Family Medical History: Myocardial Infarction ([place]) Medications and Allergies Home Medications Medication Instructions Recorded Confirmed Type Omeprazole [PriLOSEC] 20 mg PO DAILY 10/15/14 03/31/23 History Pravastatin Sodium [Pravachol] 40 mg PO HS 10/15/14 03/31/23 History Losartan Potassium 100 mg PO DAILY 01/11/15 03/31/23 History hydroCHLOROthiazide 12.5 mg PO DAILY 01/11/15 03/31/23 History [Hydrochlorothiazide] Levothyroxine Sodium [Synthroid] 75 mcg PO DAILY 03/31/23 03/31/23 History Vit C/E/Zn/Coppr/Lutein/Zeaxan 1 cap PO BID 03/31/23 03/31/23 History [Preservision Areds 2 Softgel] diphenhydrAMINE [Benadryl] 25 mg PO DAILY PRN 03/31/23 03/31/23 History DULoxetine HCL [Cymbalta] 30 mg PO DAILY #30 cap 04/01/23 Rx valACYclovir HCL [Valtrex] 1,000 mg PO TID 7 Days #21 tab 04/01/23 Rx Allergies Allergy/AdvReac Type Severity Reaction Status Date / Time codeine AdvReac Confusion Verified 03/31/23 22:28 morphine AdvReac Confusion Verified 03/31/23 22:28 Physical Exam Vitals: Vital Signs Temp Pulse Pulse Resp BP BP Pulse Ox 04/01/23 07:45 97.8 F 96 16 149/85 96 04/01/23 03:24 98.3 F 75 16 145/64 97 03/31/23 20:13 97.9 F 92 20 137/95 94 L Intake and Output 03/31/23 04/01/23 04/01/23 22:59 06:59 14:59 Other: Weight 86.183 kg 86.183 kg Results CBC & Chem 7: 04/01/23 03:40 04/01/23 03:40 Labs: Abnormal Lab Results - Last 24 Hours (Table) 03/31/23 03/31/23 04/01/23 Range/Units 20:45 20:45 03:40 APTT 21.1 L (22.0-30.0) sec Potassium 3.4 L (3.5-5.1) mmol/L BUN 21 H 20 H (7-17) mg/dL Glucose 125 H (74-99) mg/dL Assessment and Plan Time with Patient: Greater than 30
[2023-04-01 16:30] LABS: Chol/HDL Ratio 3.26 Ratio; LDL Cholesterol,Calculated 79.5 mg/dL (0.0-131.0)
[2023-04-01] MEDS ORDERED: PRAVASTATIN SODIUM 40 MG TAB PO SCH (21:00)
--- NOTE | 2023-04-04 20:03 | P.DS ---
Providers Date of admission: 03/31/23 22:05 Expected date of discharge: 04/01/23 Attending physician: Kady Causey Consults: 03/31/23 22:05 Consult Physician Urgent Consulting Provider: [facility] Consult Reason/Comments: acute chest pain, possible acs Do you want consulting provider notified?: Yes Primary care physician: Breann Lui Hospital Course: Final diagnosis Chest pain, ruled out ACS, musculoskeletal in nature Elevated d-dimer, PE ruled out on CTA Vesicular rash on the upper left shoulder blade, shingles History of breast cancer in remission GERD Hyperlipidemia Hypertension Hypothyroidism with partial thyroidectomy in 2000 History of anxiety GI prophylaxis DVT prophylaxis Full code Discharge disposition Patient is being discharged in a stable condition with guarded prognosis to home. Patient will follow-up with Dr. Lui in the outpatient setting upon discharge. Patient is to follow-up with cardiology Dr. Marshall as scheduled. Total time taken is greater than 35 minutes. Hospital course This is a 82-year-old female who was recently admitted with chest pain that have been ongoing and not getting any better over the last week. Patient was seen and evaluated by cardiology underwent echo as well as CTA as patient did have a mildly elevated d-dimer. CTA was negative for PE. Patient reports had been moving a dresser and having upper chest pain as radiating up the shoulder and around the back. After evaluation patient was noted to have a vesicular rash in a linear pattern and most likely shingles. Patient was started on viral medication along with Cymbalta and has been instructed to follow-up with primary care provider. Patient to follow-up with cardiology outpatient as well. Currently no reports of chest pain, shortness of breath, or palpitations. Patient is afebrile. No reports of nausea or vomiting and patient is tolerating diet. Patient will be discharged home today. Physical exam: Gen: This is a 82-year-old female who is awake, alert and oriented 3, well- developed, well-nourished HEENT: Head is atraumatic, normocephalic. Pupils equal, round. Sclerae is anicteric. NECK: Supple. No JVD. No lymphadenopathy. No thyromegaly. LUNGS: Clear to auscultation. No wheezes or rhonchi. No intercostal retractions. HEART: Regular rate and rhythm. No murmur. ABDOMEN: Soft. Bowel sounds are present. No masses. No tenderness. EXTREMITIES: No pedal edema. No calf tenderness. NEUROLOGICAL: Patient is awake, alert and oriented x3. Cranial nerves 2 through 12 are grossly intact. Please refer to medication reconciliation sheet for a list of medications. The impression and plan of care has been dictated by Katie Bourgeois, Nurse Practitioner as directed. Dr. Christo MD I have performed a history and examination and MDM of this patient, discussed the same with the dictator, and agree with the dictator's assessment and plan as written ,documented as a scribe. Based on total visit time, I have performed more than 50% of the visit. Patient Condition at Discharge: Stable Plan - Discharge Summary New Discharge Prescriptions: New DULoxetine HCL [Cymbalta] 30 mg PO DAILY #30 cap valACYclovir HCL [Valtrex] 1,000 mg PO TID 7 Days #21 tab Continue Pravastatin Sodium [Pravachol] 40 mg PO HS Omeprazole [PriLOSEC] 20 mg PO DAILY Losartan Potassium 100 mg PO DAILY hydroCHLOROthiazide [Hydrochlorothiazide] 12.5 mg PO DAILY diphenhydrAMINE [Benadryl] 25 mg PO DAILY PRN PRN Reason: Allergy Symptoms Vit C/E/Zn/Coppr/Lutein/Zeaxan [Preservision Areds 2 Softgel] 1 cap PO BID Levothyroxine Sodium [Synthroid] 75 mcg PO DAILY Discharge Medication List Omeprazole [PriLOSEC] 20 mg PO DAILY 10/15/14 [History] Pravastatin Sodium [Pravachol] 40 mg PO HS 10/15/14 [History] Losartan Potassium 100 mg PO DAILY 01/11/15 [History] hydroCHLOROthiazide [Hydrochlorothiazide] 12.5 mg PO DAILY 01/11/15 [History] Levothyroxine Sodium [Synthroid] 75 mcg PO DAILY 03/31/23 [History] Vit C/E/Zn/Coppr/Lutein/Zeaxan [Preservision Areds 2 Softgel] 1 cap PO BID 03/31/23 [History] diphenhydrAMINE [Benadryl] 25 mg PO DAILY PRN 03/31/23 [History] DULoxetine HCL [Cymbalta] 30 mg PO DAILY #30 cap 04/01/23 [Rx] valACYclovir HCL [Valtrex] 1,000 mg PO TID 7 Days #21 tab 04/01/23 [Rx] Follow up Appointment(s)/Referral(s): Darnell Marshall MD [STAFF PHYSICIAN] - 2 Weeks Breann Lui MD [Primary Care Provider] - 1 Week Activity/Diet/Wound Care/Special Instructions: Discharge pending CTA Activity Limited until follow-up Follow-up with primary care provider on discharge Follow-up with cardiology outpatient Continue taking medications as prescribed Avoid scratching or itching rash area on the back as it is highly contagious Discharge/Stand Alone Forms: Who Do I Call?, Community Resources, Help In The Home, Personal Clin Application Specialist Discharge Disposition: HOME SELF-CARE
== END 2023-04-01 15:09 | disposition home or self-care (01) ==
LOC: EC 20:10 → 6NMEDSUR 22:05
PROVIDERS: ADMIT Hospitalist; ATTEND Hospitalist
DX: R07.89 Other chest pain (principal); R79.89 Other specified abnormal findings of blood chemistry; B02.9 Zoster without complications; K21.9 Gastro-esophageal reflux disease without esophagitis; I10 Essential (primary) hypertension; Z82.49 Family history of ischemic heart disease and other diseases of the circulatory system; Z85.3 Personal history of malignant neoplasm of breast; E89.0 Postprocedural hypothyroidism; Z90.89 Acquired absence of other organs; Z79.890 Hormone replacement therapy; E78.00 Pure hypercholesterolemia, unspecified; Z79.899 Other long term (current) drug therapy; Z88.8 Allergy status to other drugs, medicaments and biological substances
CPT/HCPCS: 36415; 93005; 93306; 85379; 83880; 80061; 80053; 80048; 83690; 83735; 84484 ×2; 85025 ×2; 85610; 85730; 71046; 71275; G0378 ×2; Q9967

== ENCOUNTER 2024-08-23 13:41 | Emergency (ER) | payer MEDICARE ==
--- NOTE | 2024-08-23 14:02 | ED ---
General Adult HPI - General Chief complaint: Headache Stated complaint: Hypertension Time Seen by Provider: 08/23/24 13:50 Source: patient, EMS, RN notes reviewed, old records reviewed Mode of arrival: EMS Limitations: no limitations - History of Present Illness Initial comments: This is an 84-year-old female who presents to the emergency department because her blood pressure was high at home. Patient states she has been dealing with a sinus infection for about a month now she has had tenderness to the face and a lot of congestion. Patient states because of that she has been taking Tylenol cold and flu which she believes has Sudafed in it. Patient was seen by her visiting physician today her blood pressure was too high at over 100 but she was asymptomatic. According to EMS when they got her in the ambulance she was 160/90 with a pulse in the 60s. Patient did not have any chest pain difficulty breathing or shortness of breath patient denied any recent fever chills or cough patient denies any abdominal pain. Patient's only complaint is the congestion in her head and tenderness of her frontal forehead and maxillary sinus area. - Related Data Home Medications Medication Instructions Recorded Confirmed Omeprazole [PriLOSEC] 20 mg PO DAILY 10/15/14 08/23/24 Pravastatin Sodium [Pravachol] 40 mg PO DAILY 10/15/14 08/23/24 Losartan Potassium 100 mg PO DAILY 01/11/15 08/23/24 hydroCHLOROthiazide 12.5 mg PO HS 01/11/15 08/23/24 [Hydrochlorothiazide] Levothyroxine Sodium [Synthroid] 75 mcg PO DAILY 03/31/23 08/23/24 Vit C/E/Zn/Coppr/Lutein/Zeaxan 1 cap PO DAILY 03/31/23 08/23/24 [Preservision Areds 2 Softgel] Albuterol Sulfate [Ventolin HFA] 2 puff INHALATION RT-Q4H PRN 08/23/24 08/23/24 Aspirin EC [Ecotrin Low Dose] 81 mg PO DAILY 08/23/24 08/23/24 Cyanocobalamin (Vitamin B-12) 1,000 mcg PO DAILY 08/23/24 08/23/24 [Vitamin B-12] Previous Rx's Medication Instructions Recorded Amoxic-Pot Clav 875-125Mg 1 tab PO BID 10 Days #28 tab 08/23/24 [Augmentin 875-125] Allergies Allergy/AdvReac Type Severity Reaction Status Date / Time codeine AdvReac Confusion Verified 08/23/24 13:59 morphine AdvReac Confusion Verified 08/23/24 13:59 Review of Systems ROS Statement: Those systems with pertinent positive or pertinent negative responses have been documented in the HPI. ROS Other: All systems not noted in ROS Statement are negative. Past Medical History Past Medical History: Cancer, GERD/Reflux, Hyperlipidemia, Hypertension, Thyroid Disorder Additional Past Medical History / Comment(s): LEFT BREAST CANCER. History of Any Multi-Drug Resistant Organisms: None Reported Past Surgical History: Heart Catheterization Additional Past Surgical History / Comment(s): PARTIAL THYROIDECTOMY - 2000, cataract, lens implants. HEART CATH IN OCTOBER 2014- NEGATIVE Past Anesthesia/Blood Transfusion Reactions: No Reported Reaction Past Psychological History: Anxiety Smoking Status: Former smoker Past Alcohol Use History: None Reported Past Drug Use History: None Reported - Past Family History Father Brother(s) Family Medical History: Cancer Father Family Medical History: Cancer Mother Family Medical History: Myocardial Infarction (AR) General Exam - General Exam Comments Initial Comments: GENERAL: Patient is well-developed and well-nourished. Patient is nontoxic and well- hydrated and is in no acute distress. ENT: Neck is soft and supple. Tenderness along the frontal sinus and maxillary sinus. No significant lymphadenopathy is noted. Oropharynx is clear. Moist mucous membranes. Neck has full range of motion without eliciting any pain. EYES: The sclera were anicteric and conjunctiva were pink and moist. Extraocular movements were intact and pupils were equal round and reactive to light. Eyelids were unremarkable. PULMONARY: Unlabored respirations. Good breath sounds bilaterally. No audible rales rhonchi or wheezing was noted. CARDIOVASCULAR: There is a regular rate and rhythm without any murmurs gallops or rubs. ABDOMEN: Soft and nontender with normal bowel sounds. SKIN: Skin is clear with no lesions or rashes and otherwise unremarkable. NEUROLOGIC: Patient is alert and oriented x3. Cranial nerves II through XII are grossly intact. Motor and sensory are also intact. Normal speech, volume and content. Symmetrical smile. WhatsApp MUSCULOSKELETAL: Normal extremities with adequate strength and full range of motion. No lower extremity swelling or edema. No calf tenderness. LYMPHATICS: No significant lymphadenopathy is noted PSYCHIATRIC: Normal psychiatric evaluation. Limitations: no limitations Course Vital Signs 08/23/24 08/23/24 13:44 15:00 Temperature 98.4 F Pulse Rate 69 61 Respiratory 18 16 Rate Blood Pressure 155/87 149/82 O2 Sat by Pulse 96 96 Oximetry Medical Decision Making - Medical Decision Making Patient is interpreted by myself. EKG shows sinus rhythm with occasional AC at a rate of 60 bpm [place] was 163 QRS is 91 QT interval 422 QTc is 424. Patient's EKG shows no ST segment elevation or depression Was pt. sent in by a medical professional or institution (ZOHREH Avery, CONTENT DIRECTOR, urgent care, hospital, or retirement...) When possible be specific @ -No Did you speak to anyone other than the patient for history (EMS, parent, family, police, friend...)? What history was obtained from this source @ -No Did you review nursing and triage notes (agree or disagree)? Why? @ -I reviewed and agree with nursing and triage notes Were old charts reviewed (outside hosp., previous admission, EMS record, old EKG, old radiological studies, urgent care reports/EKG's, retirement records)? Report findings @ -No old charts were reviewed Differential Diagnosis? @ -Hypertension, hypertensive urgency, hypertensive emergency, this is not an all-inclusive EKG interpreted by me (3pts min.). @ -As above X-rays interpreted by me (1pt min.). @ -Chest x-ray shows no acute abnormality CT interpreted by me (1pt min.). @ -None done U/S interpreted by me (1pt. min.). @ -None done What testing was considered but not performed or refused? (CT, X-rays, U/S, labs)? Why? @ -None What meds were considered but not given or refused? Why? @ -None Did you discuss the management of the patient with other professionals (professionals i.e. ZOHREH Avery, CONTENT DIRECTOR, lab, RT, psych nurse, pediatric social worker, piano teacher, teacher, examining officer, rn case mgr)? Give summary @ -No Was smoking cessation discussed for >3mins.? @ -No Was critical care preformed (if so, how long)? @ -No Were there social determinants of health that impacted care today? How? (Homelessness, low income, unemployed, alcoholism, drug addiction, transportation, low edu. Level, literacy, decrease access to med. care, [facility], rehab)? @ -No Was there de-escalation of care discussed even if they declined (Discuss DNR or withdrawal of care, Hospice)? DNR status @ -No What co-morbidities impacted this encounter? (DM, HTN, Smoking, COPD, CAD, Cancer, CVA, ARF, Chemo, Hep., AIDS, mental health diagnosis, sleep apnea, morbid obesity)? @ -None Was patient admitted / discharged? Hospital course, mention meds given and route, prescriptions, significant lab abnormalities, going to OR and other pertinent info. @ -Patient states she has been taking some decongestant with her sinus pressure and she has agreed to stop taking it. Patient is also a little stressed because her son was just admitted to the hospital for pneumonia. Patient blood pressure is was systolically under 160 throughout her ED stay. Patient was asymptomatic except for the congestion in the head and some tenderness in the sinus areas. Undiagnosed new problem with uncertain prognosis? @ -No Drug Therapy requiring intensive monitoring for toxicity (Heparin, Nitro, Insulin, Cardizem)? @ -No Were any procedures done? @ -No Diagnosis/symptom? @ -Sinusitis Acute, or Chronic, or Acute on Chronic? @ -Acute Uncomplicated (without systemic symptoms) or Complicated (systemic symptoms)? @ -Complicated Side effects of treatment? @ -No Exacerbation, Progression, or Severe Exacerbation? @ -No Poses a threat to life or bodily function? How? (Chest pain, [place], [place], pneumonia, PE, COPD, DKA, ARF, appy, cholecystitis, CVA, Diverticulitis, Homicidal, Suicidal, threat to staff... and all critical care pts) @ -No - Lab Data Result diagrams: 08/23/24 14:03 08/23/24 14:03 Lab Results 08/23/24 08/23/24 08/23/24 Range/Units 14: 14:03 14:03 WBC 6.6 (3.8-10.6) k/uL RBC 4.32 (3.80-5.40) m/uL Hgb 13.5 (11.4-16.0) gm/dL Hct 41.5 (34.0-46.0) % MCV 96.3 (80.0-100.0) fL MCH 31.2 (25.0-35.0) pg MCHC 32.4 (31.0-37.0) g/dL RDW 12.7 (11.5-15.5) % Plt Count 187 (150-450) k/uL MPV 8.5 Neutrophils % 65 % Lymphocytes % 24 % Monocytes % 7 % Eosinophils % 2 % Basophils % 0 % Neutrophils # 4.3 (1.3-7.7) k/uL Lymphocytes # 1.6 (1.0-4.8) k/uL Monocytes # 0.4 (0-1.0) k/uL Eosinophils # 0.1 (0-0.7) k/uL Basophils # 0.0 (0-0.2) k/uL Sodium 136 L (137-145) mmol/L Potassium 4.3 (3.5-5.1) mmol/L Chloride 102 (98-107) mmol/L Carbon Dioxide 28 (22-30) mmol/L Anion Gap 6 mmol/L BUN 20 H (7-17) mg/dL Creatinine 0.93 (0.52-1.04) mg/dL Est GFR (CKD-EPI)AfAm 66 (>60 ml/min/1.73 sqM) Est GFR (CKD-EPI)NonAf 57 (>60 ml/min/1.73 sqM) Glucose 90 (74-99) mg/dL Calcium 9.3 (8.4-10.2) mg/dL Magnesium 2.3 (1.6-2.3) mg/dL Total Bilirubin 0.5 (0.2-1.3) mg/dL AST 30 (14-36) U/L ALT 19 (4-34) U/L Alkaline Phosphatase 106 (38-126) U/L Troponin I <0.012 (0.000-0.034) ng/mL Total Protein 6.6 (6.3-8.2) g/dL Albumin 3.9 (3.5-5.0) g/dL Disposition Clinical Impression: Sinusitis Disposition: HOME SELF-CARE Condition: Good Instructions (If sedation given, give patient instructions): Sinusitis (ED) Prescriptions: Amoxic-Pot Clav 875-125Mg [Augmentin 875-125] 1 tab PO BID 10 Days #28 tab Is patient prescribed a controlled substance at d/c from ED?: No Referrals: Aminata Magdaleno MD [Primary Care Provider] - 1-2 days Time of Disposition: 15:25
[2024-08-23 14:10] LABS: Basophils % (A) 0 %; Eosinophils # (A) 0.1 k/uL (0-0.7); Eosinophils % (A) 2 %; HCT 41.5 % (34.0-46.0); HGB 13.5 gm/dL (11.4-16.0); Lymphocytes # (A) 1.6 k/uL (1.0-4.8); Lymphocytes % (A) 24 %; MCH 31.2 pg (25.0-35.0); MCHC 32.4 g/dL (31.0-37.0); MCV 96.3 fL (80.0-100.0); Mean Platelet Volume 8.5; Monocytes # (A) 0.4 k/uL (0-1.0); Monocytes % (A) 7 %; Neutrophils # (A) 4.3 k/uL (1.3-7.7); Neutrophils % (A) 65 %; Platelet Count 187 k/uL (150-450); RBC 4.32 m/uL (3.80-5.40); RDW 12.7 % (11.5-15.5); WBC 6.6 k/uL (3.8-10.6)
[2024-08-23 14:33] LABS: ALT 19 U/L (4-34); AST 30 U/L (14-36); African American GFR (CKD) 66 (>60 ml/min/1.73 sqM); Albumin 3.9 g/dL (3.5-5.0); Alkaline Phosphatase 106 U/L (38-126); Anion Gap 6 mmol/L; Blood Urea Nitrogen 20 mg/dL (7-17); Calcium 9.3 mg/dL (8.4-10.2); Carbon Dioxide 28 mmol/L (22-30); Chloride 102 mmol/L (98-107); Glucose 90 mg/dL (74-99); Magnesium 2.3 mg/dL (1.6-2.3); Non-African American GFR(CKD) 57 (>60 ml/min/1.73 sqM); Potassium 4.3 mmol/L (3.5-5.1); Sodium 136 mmol/L (137-145); Total Bilirubin 0.5 mg/dL (0.2-1.3); Total Protein 6.6 g/dL (6.3-8.2)
--- NOTE | 2024-08-23 14:56 | XR ---
Chest, 2 view. HISTORY: Chest pain COMPARISON: 03/31/2023 TECHNIQUE: PA and lateral views the chest are obtained. FINDINGS: The lungs are clear and there is no consolidative or interstitial opacity. There is no pleural effusion or pneumothorax. The heart, pulmonary vasculature, mediastinum and juve appear normal. The osseous structures are intact. IMPRESSION: No significant abnormality seen. No acute cardiopulmonary disease. [facility], , 08/23/2024 2:54 PM
[2024-08-23 15:40] VITALS: BP 149/75; PULSE 58; RESP 18; TEMP 98.3
== END 2024-08-23 15:40 | disposition home or self-care (01) ==
LOC: EC 13:41
DX: J32.9 Chronic sinusitis, unspecified (principal); Z88.5 Allergy status to narcotic agent; Z87.891 Personal history of nicotine dependence
CPT/HCPCS: 36415; 71046; 80053; 83735; 84484; 85025; 93005; 99284